=== PATIENT | female | born 1955 | race Caucasian/White ===

== ENCOUNTER 2023-12-08 16:10 | Inpatient (IN) | payer MEDICARE, OTHER, SELFPAY ==
[2023-12-08] VITALS (12 sets, daily range): BP systolic 96–143; BP diastolic 44–72; BMI 41.0
[2023-12-08 11:50] LABS: % Basophils 0.6 % (0-2); % Eosinophils 0.2 % (0-6); % Immature Granulocytes 0.5 % (0-0.5); % Lymphocytes 15.1 % (20.5-51.1); % Monocytes 8.1 % (1.7-9.3); % Neutrophils 75.5 % (42.2-75.2); Absolute Basophils 0.1 10^3/uL (0-0.2); Absolute Immature Granulocytes 0.1 10^3/uL (0-0.05); Absolute Lymphocytes 1.7 10^3/uL (1.2-3.4); Absolute Monocytes 0.9 10^3/uL (0.1-0.6); Absolute Neutrophils 8.3 10^3/uL (1.4-6.5); Hematocrit 37.4 % (37.0-47.0); Hemoglobin 13.8 g/dL (12.0-16.0); Mean Corp Hgb Conc. 36.9 g/dL (33.0-37.0); Mean Corpuscular Hgb 30.9 pg (27.0-31.0); Mean Corpuscular Volume 83.7 fL (81.0-99.0); Mean Platelet Volume 9.5 fL (7.4-10.4); Nucleated Red Blood Cells % 0 %; Platelet Count 250 10^3/uL (130-400); Red Blood Cell Count 4.47 10^6/uL (4.20-5.40); Red Cell Dist. Width 13.9 % (11.5-14.5)
[2023-12-08 12:09] LABS: Troponin I < 0.012 ng/ml
[2023-12-08] MEDS: NITROSTAT (SUBLINGUAL) 0.400000000000000022 MG SL (12:22)
[2023-12-08 12:39] LABS: NT-proBNP 292 pg/ml
[2023-12-08 12:41] LABS: ALT (SGPT) 23 U/L (0-35); AST (SGOT) 21 U/L (14-36); Albumin 3.9 g/dl (3.5-5.0); Alkaline Phosphatase 119 U/L (38-126); Blood Urea Nitrogen 30 mg/dl (7-17); Calcium 10.1 mg/dl (8.4-10.2); Carbon Dioxide 34 mmol/L (22-30); Chloride 89 mmol/L (98-107); Glucose 115 mg/dl (70-99); Potassium 2.6 mmol/L (3.5-5.1); Sodium 130 mmol/L (135-145); Total Bilirubin 0.8 mg/dl (0.2-1.3); Total Protein 6.1 g/dl (6.3-8.2)
--- NOTE | 2023-12-08 12:48 | ED.GENMED ---
History of Present Illness
General
Chief Complaint: Breathing Problem
Source: patient
Exam Limitations: none and other
Time Seen by Provider: 12/08/23 12:03
Travel History
Have you had any contact with someone who has COVID-19?: No
Do you have any symptoms of coronavirus? Fever > 100 degrees, chills, cough, shortness of breath, sore throat, loss of taste or smell, muscle aches, or headache?: No
History of Present Illness
History of Present Illness:
Patient with history of chronic dizziness on meclizine, hypertension, PE on Eliquis, and recently diagnosed congestive heart failure on Lasix, presents to ED secondary to sudden onset of chest pain while driving to [place] this morning. Chest pain
described as pressure, nonradiating, associated with shortness of breath and dizziness. Denies nausea or vomiting. Denies diaphoresis. Denies back pain. Denies leg pain. Patient states that when she woke up this morning, she was 'not feeling
great', with ongoing abdominal distention. As a result of ongoing swelling, patient has not had full meal since yesterday afternoon. Of note, patient was admitted to hospital in October and treated for 'fluid overload', and has been taking Lasix
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 In addition, patient was readmitted to the hospital last month secondary to RSV infection. Denies previous history of chest pain. Denies family history of heart disease.
Past History
Past History
ED Past Medical History: GERD, HTN, Hypercholesterolemia and Other (Chronic back pain, headaches, chronic renal insufficiency, Romano's esophagus, Poppy's thyroiditis)
ED Past Surgical History: Orthopedic and Tonsilectomy
Social History
Tobacco: Non-smoker
Alcohol: None
Drug: None
Living: with family
Employment: Retired
Family History
Family History: Other (Noncontributory)
Review of Systems
Review of Systems
Allergies reviewed?: Yes
All Other Systems: ROS reviewed and negative except as documented in HPI and ROS
Constitutional: Reports no symptoms
EENT: Reports no symptoms
Respiratory: Reports trouble breathing
Cardiac: Reports chest pain
ABD/GI: Reports no symptoms
: Reports no symptoms
Musculoskeletal: Reports no symptoms
Skin: Reports no symptoms
Neurological: Reports dizzy
Phy Exam
Physical Exam
Physical Exam:
Physical Exam
General: mild distress, not acutely ill. afebrile. obese
Head: nc/at. eomi
Neck: supple. normal range of motion.
Heart: s1/s2 regular rate and rhythm, no murmur. equal radial pulses.
Lungs: no acute respiratory distress. diminished breath sounds bilaterally
Abdomen: normal bowel sounds. not tender.
Neuro: alert and oriented. no focal neurological deficits
Skin: no rash
Psychiatric: well kept. interactive and cooperative
Extremities: LE b/l edema, nonpitting. no calf tenderness
Scores
Heart Failure Risk
Heart Failure Risk Score: Yes
History of Stroke or TIA: No
History of intubation for respiratory distress: No
Heart rate on ED arrival >/= 110: No
SaO2 <90% on arrival on room air: No
HR >/=110 during 3min walk test (or too ill to perform test): No
ECG has acute ischemic changes: No
Urea >/=12mmol/L (BUN 33.6mg/dL): Yes
Serum CO2>/=35mmol/L: No
Troponin I or T elevated to FL Level (0.4mg/dL): No
NT-proBNP >/=5,000ng/L (5,000pg/ml): No
HF Risk Score: 1
Admission Status: MEDIUM RISK 5.1% Consider observation or discharge to home with homecare & f/u visit to PCP/Hedge Fund Principal, or SNF for treatment
Heart Score for Chest Pain Patients
STEMI patient?: No
History: Slightly or Non-Suspicious
ECG: Normal
Age: >/= 65 years
Risk Factors: 1 or 2 Risk Factors
Troponin: </= Normal Limit
Heart Score for Chest Pain Patients: 3
Heart Score Risk: 2.5% MACE over next 6 weeks
Course
Orders/Labs/Results
Orders:
Orders
12/08/23 11:26
Electrocardiogram (*1) Urgent
Reason for Study: Vertigo / Dizzy
EKG- Treatment ONCE
12/08/23 11:39
Complete Blood Count/With Diff Urgent
NT-proBNP Urgent
Comment: ADD ON
Troponin I Urgent
12/08/23 11:56
Add On- LAB Urgent
Tests Added?: BNP
12/08/23 12:05
Comprehensive Metabolic Panel Urgent
Magnesium Urgent
Comment: ADD-ON
12/08/23 12:16
Nitroglycerin Sublingual [Nitrostat (Sublingual)] 0.4 mg SL NOW STA
12/08/23 12:17
CR Chest Portable - 1 View Urgent
Comment:
Reason For Exam: cp/sob
Reason Study Needs to be Portable: Patient Unstable
12/08/23 12:28
Electrocardiogram (*1) Urgent
Reason for Study: Chest Pain
EKG- Treatment ONCE
12/08/23 12:48
Acetaminophen [Tylenol] 650 mg PO NOW STA
Meclizine [Antivert] 25 mg PO NOW STA
Potassium Chloride [KCl] 40 meq PO NOW STA
12/08/23 13:37
Potassium Chloride [KCl] 40 meq 0.9% Sodium Chloride 250 ml [Nss] 250 ml IV NOW
12/08/23 Dinner
Cholesterol Lowering
At Your Request: Full Participation
Fluid Restriction: 1500 mL/day (50 oz)
12/08/23 15:17
Add On- LAB Urgent
Tests Added?: Mg level
12/08/23 15:29
CARDIOLOGY CONSULT Routine
Consulting Provider: Serge Shields
Was physician already notified: Yes
Reason for consult: chest pain
12/08/23 15:55
Admit/Transfer Patient As Directed
Co-Sign Provider:
Level of Care: Inpatient admission
Assign to:: Telemetry
Physician / Group: belen crawford
Diagnosis: Chest pain, severe hypokalemia
Reason for Telemetry: Medication for Arrhythmia
Date to Stop Telemetry: 12/10/23
Time to Stop Telemetry: 11:00
Reason for Hospitalization: Chest pain, severe hypokalemia
Expected length of stay greater than two midnights?: Yes
ELOS- Estimated Length of Stay in days: 2
I certify the patient meets the requirements for IP care: Yes
12/08/23 15:59
Code Status As Directed
Resuscitation Status: Full Code
12/08/23 18:35
Acetaminophen [Tylenol] 1,000 mg PO Q6HPRN PRN
Albuterol [ProAIR HFA INHALER] 2 puff INH R Q4 PRN
Lorazepam [Ativan] 1 mg PO Q8HPRN PRN
Meclizine [Antivert] 25 mg PO Q8HPRN PRN
Nitroglycerin Sublingual [Nitrostat (Sublingual)] 0.4 mg SL [id number] PRN
Promethazine [Phenergan] 25 mg PO Q6HPRN PRN
12/08/23 18:35
Urinalysis Reflex To Culture Routine
Date Specimen was Collected: 12/09/23
Time Specimen was Collected: 05:34
Activity As Directed
Activity Level: Ambulate
INT (Intravenous Needle Therapy) As Directed
Comment: maintain peripheral IV access
Intake/ Output As Directed
Frequency: Per unit guidelines
Records Request [Obtain Records] As Directed
Dates of Information to be Released: 04/09/23-present
Type of Information Requested: Entire Record
Vital Signs As Directed
Frequency: q4h
Weight As Directed
Frequency: Daily
Pt Eval And Treat Routine
Activity Level: Ambulate
12/08/23 19:00
Benzonatate [Tessalon Perles] 200 mg PO Q8HPRN PRN
12/08/23 19:05
Glycohemoglobin (HgbA1c) Routine
Troponin I Q3H
Comment: at admit & Q3H for 3 total including ED draws, obtain ECG with each level
12/08/23 20:00
Apixaban [Eliquis] 5 mg PO BID
Budesonide/Formoterol 160/4.5 [Symbicort 160/4.5 Mcg Inhaler] 2 puff INH R BID
12/08/23 20:01
Butalb/Acetaminophen/Caffeine [Fioricet] 1 tab PO Q8H PRN
12/08/23 20:30
Pantoprazole [Protonix] 40 mg PO BID
12/08/23 22:00
Atorvastatin [Lipitor] 20 mg PO HS
12/08/23 23:01
Basic Metabolic Panel Routine
Troponin I Q3H
Comment: at admit & Q3H for 3 total including ED draws, obtain ECG with each level
12/09/23 05:49
Basic Metabolic Panel IN AM
Complete Blood Count/No Diff IN AM
Magnesium IN AM
12/09/23 06:35
Electrocardiogram (*1) Q6H
Reason for Study: Chest Pain
Comment: at admission and Q3H for total of 3, to be done with each troponin
12/09/23 07:00
Levothyroxine [Synthroid] 137 mcg PO DAILY@0700
12/09/23 08:00
Cholecalciferol (Vitamin D3) [VITAMIN D3 (cholecalciferol)] 50 mcg PO DAILY
12/10/23 11:00
DC Protocol for Telemetry ONCE
Abnormal Lab Results
12/08/23 12/08/23
11:39 12:05
WBC 11.0 H 10^3/uL
(4.8-10.8)
Abs Immat Gran (auto) 0.1 H 10^3/uL
(0-0.05)
Absolute Neuts (auto) 8.3 H 10^3/uL
(1.4-6.5)
Absolute Monos (auto) 0.9 H 10^3/uL
(0.1-0.6)
Neutrophils % 75.5 H %
(42.2-75.2)
Lymphocytes % 15.1 L %
(20.5-51.1)
Sodium 130 L mmol/L
(135-145)
Potassium 2.6 L* mmol/L
(3.5-5.1)
Chloride 89 L mmol/L
(98-107)
Carbon Dioxide 34 H mmol/L
(22-30)
BUN 30 H mg/dl
(7-17)
Creatinine 1.2 H mg/dL
(0.6-1.0)
Glucose 115 H mg/dl
(70-99)
Total Protein 6.1 L g/dl
(6.3-8.2)
12/08/23 11:39
12/08/23 15:27
Vital Signs
Initial and Last Documented VS:
Initial Vital Signs
Resp Pulse Ox
12 97
12/08/23 11:27 12/08/23 11:27
Last Documented Vital Signs
Temp Pulse Resp BP Pulse Ox
97.9 F 94 18 116/64 96
12/09/23 11:16 12/09/23 11:16 12/09/23 11:16 12/09/23 11:16 12/09/23 11:16
MDM/Problems Addressed
MDM/Problems Addressed:
Abnormal EKG reviewed and discussed with Dr. Shields, cardiology, who feels that EKG is not significantly different from previous EKG. Initial troponin negative. However, patient with ongoing chest pain as well as dizziness, despite treatment. In
addition electrolyte abnormalities noted, which will need to be repleted. As such, patient will be admitted for further evaluation and treatment.
*EKG
Interpreted by ED Provider?: Yes
EKG Intrepretation Date: 12/08/23
Heart Rate: 94
Rate: normal
Rhythm: sinus
[place]: normal axis
Ischemia: non-specific ST changes
*Critical Care Note
Total Time (30-74mins, 75-104mins- exclusive of procedures): Not Applicable
ED Attending Note
-
Portions of this chart may have been created with voice recognition software.� Occasional wrong word or��sound alike� substitutions may have occurred due to the inherent limitations of voice recognition software.
Discharge Plan
Departure
Patient Disposition: Admit
Date of Disposition: 12/08/23
Time of Disposition: 14:14
Admit to: Telemetry
Presentation/result/management discussed w/ accepting MD/DO: Hospitalist
Condition: Fair
Discharge Problem:
Chest pain, Abnormal EKG, Hyponatremia, Hypokalemia
Interventions
Interventions:
*Risk Screen - Suicide Last Done: 12/08/23 11:55
*General Assessment Last Done: 12/08/23 11:31
*Neglect/Abuse Screening Last Done: 12/08/23 11:34
*ED COVID-19 Vaccine History Last Done: 12/08/23 11:29
*Nursing Disposition Last Done: 12/08/23 18:36
ED- Cardiac Assessment Last Done: 12/08/23 11:32
ED- Pulmonary Assessment Last Done: 12/08/23 11:33
Discharge Date and Time
Discharge Date/Time: 12/08/23 18:38
[2023-12-08] MEDS: TYLENOL 650 MG PO (13:00)
[2023-12-08] MEDS: ANTIVERT 25 MG PO (13:02)
[2023-12-08] MEDS: KCL 40 MEQ PO ×2 (13:02→20:55)
[2023-12-08] MEDS: KCL 270 MEQ IV (13:57)
--- NOTE | 2023-12-08 15:19 | HPS.HSE ---
Addendum entered and electronically signed by Gianluca Gibbs MD 12/08/23 16:14:
Patient also has common variable immunodeficiency (CVID)
-Follows with Genevieve Hewitt at [facility]
-Used to get IVIG for this, is being switched to Hizentra
-Will continue Bactrim for prophylaxis
Addendum entered and electronically signed by Gianluca Gibbs MD 12/08/23 16:03:
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
Avoid Zofran and other QT prolonging agents, monitor QTc on following EKGs.
Original Note:
Family Physician
-
Family Physician: Annie Finley
Chief Complaint
-
Chest pain
History of Present Illness
68-year-old female with a past medical history of morbid obesity, recently diagnosed CHF, pulmonary embolism on Eliquis, chronic dizziness on meclizine, hypertension, and anxiety presents with substernal chest pain that began when she was driving
today. Patient reports that she feels pressure and tightness at her substernal area, nonradiating, associated with mild shortness of breath and dizziness. Now the pain has traveled to her upper abdomen. Her potassium was low, she states she was
started on diuretics but not taking any potassium supplements. She had 1 episode of nausea and vomiting when taking potassium pills in the ER. No diarrhea. No dysuria, no black or bloody stools.
Medical History
Past Medical History
Past Medical History: Reports Other
Additional Past Medical History:
CHF, PE on eliquis, GERD, HTN, Hypercholesterolemia, Chronic back pain, Headaches, Chronic renal insufficiency, Romano's esophagus, Poppy's thyroiditis
Past Surgical History: Reports Orthopedic and Tonsilectomy
Social History
Tobacco: Non-smoker
Alcohol: None
Drug: None
Living: With Family
Employment: Retired
Family History
Family History: Not pertinent
Allergies / Home Medications
Allergies reflects when Allergies were last updated in [facility].
Home Medications with original date entered in [facility]
Allergy/Medication List:
Allergies
Allergy/AdvReac Type Severity Reaction Status Date / Time
amoxicillin Allergy Unknown Verified 12/08/23 11:41
cefaclor [From Ceclor] Allergy Hives Verified 12/08/23 11:41
cephalexin Allergy Unknown Verified 12/08/23 11:41
Cephalosporins Allergy Unknown Verified 12/08/23 11:41
iodine Allergy Unknown Verified 12/08/23 11:41
meperidine Allergy Unknown Verified 12/08/23 11:41
Penicillins Allergy Unknown Verified 12/08/23 11:41
IV dye Allergy Unknown Uncoded 12/08/23 11:41
Home Medications Table - record
Medication Instructions Recorded Confirmed
bvjscjieig-mouodqjptgqhi-ajoxrpyy 1 ea PO Q8H PRN headache 12/11/20 12/08/23
50 mg-325 mg-40 mg capsule
levothyroxine 137 mcg capsule 137 mcg PO DAILY 12/11/20 12/08/23
meclizine 25 mg tablet 25 mg PO Q8H PRN dizziness 12/11/20 12/08/23
rabeprazole 20 mg tablet,delayed 20 mg PO BID 12/11/20 12/08/23
release (AcipHex)
acetaminophen 500 mg tablet 1,000 mg PO Q6H PRN mild pain/fever 12/08/23 12/08/23
albuterol sulfate 90 mcg/actuation 2 puff inhalation R Q4 PRN 12/08/23 12/08/23
aerosol inhaler sob/wheezing
apixaban 5 mg tablet (Eliquis) 5 mg PO BID 12/08/23 12/08/23
benzonatate 200 mg capsule 200 mg PO Q8H PRN cough 12/08/23 12/08/23
cholecalciferol (vitamin D3) 50 50 mcg PO DAILY 12/08/23 12/08/23
mcg (2,000 unit) tablet (Vitamin
D3)
fluticasone furoate 200 1 inh inhalation R DAILY 12/08/23 12/08/23
mcg-vilanterol 25 mcg/dose
inhalation powder (Breo Ellipta)
furosemide 40 mg tablet 40 mg PO BID 12/08/23 12/08/23
furosemide 40 mg tablet 40 mg PO DAILY PRN fluid 12/08/23 12/08/23
lorazepam 1 mg tablet 1 mg PO Q8H PRN anxiety 12/08/23 12/08/23
losartan 50 mg tablet 50 mg PO DAILY 12/08/23 12/08/23
metolazone 2.5 mg tablet 2.5 mg PO .3X WEEKLY 12/08/23 12/08/23
ondansetron HCl 8 mg tablet 8 mg PO Q8H PRN nausea/vomiting 12/08/23 12/08/23
pitavastatin calcium 4 mg tablet 4 mg PO HS 12/08/23 12/08/23
sulfamethoxazole 800 1 tab PO BID 12/08/23 12/08/23
mg-trimethoprim 160 mg tablet
Review of Systems
-
A 12 point ROS was completed and negative except as noted: Yes
Physical Exam
Vital Signs
Vital Signs
Temp Pulse Resp BP Pulse Ox
98.1 F 95 15 100/72 95
12/08/23 11:34 12/08/23 14:02 12/08/23 14:02 12/08/23 13:40 12/08/23 14:02
Physical Exam
General: No Apparent Distress and Morbidly Obese
HEENT: NormoCephalic, Anicteric, Moist mucous membranes and Atraumatic
Respiratory: Decreased Breath Sounds
Cardiac: S1/S2 and Regular Rhythm
GI: Soft and Tender (Tender at the upper quadrants)
Musculoskeletal: No Clubbing, No Cyanosis, Edema, Left Lower Extremity and Edema, Right Lower Extremity
Skin: Warm and Dry
Neuro: Awake, Alert and Oriented
Psych: Calm
Laboratory Results
-
12/08/23 11:39
12/08/23 12:05
Laboratory Results
Total Bilirubin 0.8 mg/dl (0.2-1.3) 12/08/23 12:05
AST 21 U/L (14-36) 12/08/23 12:05
ALT 23 U/L (0-35) 12/08/23 12:05
Alkaline Phosphatase 119 U/L (38-126) 12/08/23 12:05
Troponin I < 0.012 ng/ml 12/08/23 11:39
Impression/Plan
-
HPI: 68-year-old female with a past medical history of morbid obesity, recently diagnosed CHF, pulmonary embolism on Eliquis, chronic dizziness on meclizine, hypertension, and anxiety presents with substernal chest pain that began when she was
driving today. Patient reports that she feels pressure and tightness at her substernal area, nonradiating, associated with mild shortness of breath and dizziness. Now the pain has traveled to her upper abdomen. Her potassium was low, she states
she was started on diuretics but not taking any potassium supplements. She had 1 episode of nausea and vomiting when taking potassium pills in the ER. No diarrhea. No dysuria, no black or bloody stools.
#Substernal chest pain
#Abnormal EKG
Consult cardiology, trend troponins, trend EKG
#Severe hypokalemia
Replete by IV and p.o., check Mg
#History of congestive heart failure - unknown type
On metolazone 2.5 mg 3 times a week as well as Lasix 40 mg twice a day
Hold diuretics until potassium is adequately repleted
Obtain records from [place]
#Hyponatremia
Suspect secondary to CHF
Fluid restrict, trend Na
#Benign essential hypertension
Blood pressure soft at 100/72, hold losartan
#Leukocytosis
No fever, chest x-ray negative
Check urine analysis
Monitor off antibiotics
#Chronic dizziness
Continue meclizine as needed
#Anxiety
Continue home Ativan as needed
#Hypothyroidism
Continue levothyroxine
#Morbid obesity secondary to excess calories
Affects all aspects of care
#Recent hospitalization for fluid overload at [place]
#Recent hospitalization for RSV at [place]
Request records
DVT prophylaxis�Eliquis
Full code
Total time spent to see the patient on the floor, examine the patient, review data and lab results, discuss treatment plan with patient, nursing staff around 75 minutes.
[2023-12-08 15:53] LABS: Magnesium 2.3 mg/dl (1.6-2.3)
--- NOTE | 2023-12-08 16:34 | CON.CAR ---
Consultation
Consultation Request
Date/Time Consultation Requested: December 08, 2023
Date/Time Consultation Performed: December 08, 2023
Requesting Provider: Hospitalist
Performing Provider: Cornelius
Reason for Consultation: Hypokalemia
Medical History
-
Chief Complaint: Hypokalemia
History of Present Illness:
68-year-old female with a past medical history of morbid obesity, recently diagnosed presumed diastolic CHF, prior DVT and pulmonary embolism on Eliquis, chronic dizziness on meclizine, hypertension, and anxiety presents with substernal chest pain
that began when she was driving today.� Patient reports that she feels pressure and tightness at her substernal area, nonradiating, associated with mild shortness of breath and dizziness.� Now the pain has traveled to her upper abdomen.� The pain
started around 9 AM. Her initial presenting troponin is negative. EKG from 2020 and 2 here from [address]-T changes. Importantly, her potassium was low, she states she was started on diuretics but not taking
any potassium supplements.� She had 1 episode of nausea and vomiting when taking potassium pills in the ER.� No diarrhea.� No dysuria, no black or bloody stools. She is followed at [facility] and Dr. Isaac Rosario sent her to our emergency
department. She has abdominal fullness and extremity edema after salty meals and she describes that fullness to me now.
Past Medical History
Past Medical History: CHF and HTN
Past Surgical History: None
Social History
Tobacco: Non-Smoker
Alcohol: None
Drug: None
Personal: Other
Living: Other
Employment: Employed
Family History
Family History: Reviewed & Not Pertinent
Allergies / Home Medications
Allergy/AdvReac Type Severity Reaction Status Date / Time
amoxicillin Allergy Unknown Verified 12/08/23 11:41
cefaclor [From Ceclor] Allergy Hives Verified 12/08/23 11:41
cephalexin Allergy Unknown Verified 12/08/23 11:41
Cephalosporins Allergy Unknown Verified 12/08/23 11:41
iodine Allergy Unknown Verified 12/08/23 11:41
meperidine Allergy Unknown Verified 12/08/23 11:41
Penicillins Allergy Unknown Verified 12/08/23 11:41
IV dye Allergy Unknown Uncoded 12/08/23 11:41
Medication Instructions Recorded Confirmed Type
lhlulouidq-bgnlhkjcvvzln-mnvzlgim 1 ea PO Q8H PRN headache 12/11/20 12/08/23 History
50 mg-325 mg-40 mg capsule
levothyroxine 137 mcg capsule 137 mcg PO DAILY 12/11/20 12/08/23 History
meclizine 25 mg tablet 25 mg PO Q8H PRN dizziness 12/11/20 12/08/23 History
rabeprazole 20 mg tablet,delayed 20 mg PO BID 12/11/20 12/08/23 History
release (AcipHex)
acetaminophen 500 mg tablet 1,000 mg PO Q6H PRN mild pain/fever 12/08/23 12/08/23 History
albuterol sulfate 90 mcg/actuation 2 puff inhalation R Q4 PRN 12/08/23 12/08/23 History
aerosol inhaler sob/wheezing
apixaban 5 mg tablet (Eliquis) 5 mg PO BID 12/08/23 12/08/23 History
benzonatate 200 mg capsule 200 mg PO Q8H PRN cough 12/08/23 12/08/23 History
cholecalciferol (vitamin D3) 50 50 mcg PO DAILY 12/08/23 12/08/23 History
mcg (2,000 unit) tablet (Vitamin
D3)
fluticasone furoate 200 1 inh inhalation R DAILY 12/08/23 12/08/23 History
mcg-vilanterol 25 mcg/dose
inhalation powder (Breo Ellipta)
furosemide 40 mg tablet 40 mg PO BID 12/08/23 12/08/23 History
furosemide 40 mg tablet 40 mg PO DAILY PRN fluid 12/08/23 12/08/23 History
lorazepam 1 mg tablet 1 mg PO Q8H PRN anxiety 12/08/23 12/08/23 History
losartan 50 mg tablet 50 mg PO DAILY 12/08/23 12/08/23 History
metolazone 2.5 mg tablet 2.5 mg PO .3X WEEKLY 12/08/23 12/08/23 History
ondansetron HCl 8 mg tablet 8 mg PO Q8H PRN nausea/vomiting 12/08/23 12/08/23 History
pitavastatin calcium 4 mg tablet 4 mg PO HS 12/08/23 12/08/23 History
sulfamethoxazole 800 1 tab PO BID 12/08/23 12/08/23 History
mg-trimethoprim 160 mg tablet
Review of Systems
-
All other systems: Negative unless noted
Constitutional: Fatigue
Respiratory: Trouble Breathing
Cardiac: Chest Pain
Musculoskeletal: No Symptoms
Skin: No Symptoms
Physical Exam
Vital Signs
Temp Pulse Resp BP Pulse Ox
98.1 F 92 11 100/72 91
12/08/23 11:34 12/08/23 16:15 12/08/23 16:15 12/08/23 13:40 12/08/23 16:15
Lab Results
12/08/23 11:39
12/08/23 15:27
Troponin I < 0.012 ng/ml 12/08/23 11:39
Hfc-K-Qhbhjlimxlj Pept 292 pg/ml 12/08/23 11:39
Physical Exam
General: Well Developed and Well Nourished
HEENT: Normocephalic and Anicteric
Respiratory: Clear
Cardiac: S1/S2 and Regular Rhythm
Breast: Deferred by me
GI: Soft, Non Tender and Distended
Rectal: Deferred by Provider
Genito-urinary: No Costovertebral Tender
Musculoskeletal: No Clubbing and No Cyanosis
Skin: Warm and Dry
Neuro: Awake, Alert and Oriented
Hematologic/Lymphatic: No Lymphadenopathy
Psych: Calm
Impression / Plan
-
Primary net web application developer: Dr. Tiffanie Melendez at [facility]
Impression:
Substernal chest pain
Abnormal EKG
Initial negative troponin after 5 hours of symptoms
Significant hypokalemia
History of congestive heart failure - unknown type
Outpatient diuresis with Lasix and metolazone without potassium repletion
Hyponatremia
Benign essential hypertension
Leukocytosis
Chronic dizziness
Anxiety
Hypothyroidism
Morbid obesity secondary to excess calories
Recent hospitalization for fluid overload at [place]
Recent hospitalization for RSV at [place] last week
Recommendation:
Her symptomatology and syndrome are most consistent with volume overload likely suspected diastolic heart failure and significant hypokalemia which could be the cause of her constitutional symptoms as well as nonspecific ST-T changes. Her ST
segments are scooped or terminal ascending and I am suspicious electrolyte abnormality as the cause of her ST-T changes. Nonetheless:
-Trend troponin
-It would be reasonable to perform echocardiogram
-Agree with potassium repletion prior to ongoing diuresis although she appears significantly volume overloaded and I suspect will need days of IV diuresis
-Old records would be important from [facility] as she was sent to the emergency department by one of their cardiologists
-Outpatient versus inpatient ischemia evaluation depending on troponin trend although I suspect this could be outpatient
-Contact [facility] office Saturday a.m. to obtain records and communicate plans for care
-Follow daily ECG, would continue telemetry given her electrolyte abnormalities and will follow closely with you
Data Reviewed
-
EKG: Tracing Personally Visualized and interpreted
Radiology: Image Personally Visualized and interpreted
Labs: Labs Reviewed by me
Old Records: Reviewed
--- NOTE | 2023-12-08 18:46 | PTCARENOTE ---
Pt arrived to floor from ED. KCL in NSS running at 40 in right arm. Tele applied
[2023-12-08 19:55] LABS: Troponin I < 0.012 ng/ml
[2023-12-08] MEDS: SYMBICORT 160/4.5 MCG INHALER 2 PUFF INH (20:16)
[2023-12-08] MEDS: PROTONIX 40 MG PO (20:55)
[2023-12-08] MEDS: LIPITOR 20 MG PO (20:55)
[2023-12-08] MEDS: ELIQUIS 5 MG PO (20:55)
[2023-12-08 23:27] LABS: Blood Urea Nitrogen 31 mg/dl (7-17); Calcium 9.3 mg/dl (8.4-10.2); Carbon Dioxide 32 mmol/L (22-30); Chloride 98 mmol/L (98-107); Estimated Creatinine Clearance 39 ml/min; Glucose 117 mg/dl (70-99); Potassium 4.2 mmol/L (3.5-5.1); Sodium 130 mmol/L (135-145); eGFR 40.47
[2023-12-08 23:31] LABS: Troponin I < 0.012 ng/ml
[2023-12-09] MEDS: FIORICET 1 TAB PO (02:28)
[2023-12-09] MEDS: KCL 40 MEQ PO (02:28)
[2023-12-09 03:32] VITALS: BP 116/61
[2023-12-09 05:51] VITALS: BMI 51.2
[2023-12-09] MEDS: SYNTHROID 137 MCG PO (06:06)
[2023-12-09 06:34] LABS: Hematocrit 40.5 % (37.0-47.0); Hemoglobin 13.6 g/dL (12.0-16.0); Mean Corp Hgb Conc. 33.6 g/dL (33.0-37.0); Mean Corpuscular Hgb 30.6 pg (27.0-31.0); Mean Platelet Volume 9.9 fL (7.4-10.4); Platelet Count 251 10^3/uL (130-400); Red Blood Cell Count 4.45 10^6/uL (4.20-5.40); Red Cell Dist. Width 14.6 % (11.5-14.5); White Blood Cell Count 7.9 10^3/uL (4.8-10.8)
[2023-12-09 07:03] LABS: Urine Albumin Trace (Neg - Trace); Urine Bilirubin 1+ (Negative); Urine Character Clear (Clear); Urine Color Yellow; Urine Glucose Negative (Negative); Urine Ketone Negative (Negative); Urine Leukocyte Negative (Negative); Urine Nitrite Negative (Negative); Urine Occult Blood Negative (Negative); Urine Urobilinogen Negative (Neg - 1+)
[2023-12-09 07:04] LABS: Blood Urea Nitrogen 31 mg/dl (7-17); Calcium 9.3 mg/dl (8.4-10.2); Carbon Dioxide 30 mmol/L (22-30); Chloride 100 mmol/L (98-107); Estimated Creatinine Clearance 56 ml/min; Glucose 106 mg/dl (70-99); Magnesium 2.7 mg/dl (1.6-2.3); Potassium 4.5 mmol/L (3.5-5.1); Sodium 130 mmol/L (135-145); eGFR 54.06
--- NOTE | 2023-12-09 07:20 | W.PN.HOSP.TC ---
Today's Communication/Plan
-
Resume furosemide today/defer further adjustments to cardiology
Add potassium supplement hopefully can tolerate
Hold metolazone for now
Await repeat 2D echocardiogram and compare results from [facility] to records requested
Liberalize fluid restriction as patient intolerant
Assessment / Plan
Assessment / Plan
68-year-old female with a past medical history of morbid obesity, recently diagnosed CHF, pulmonary embolism on Eliquis, chronic dizziness on meclizine, hypertension, and anxiety presents with substernal chest pain that began when she was driving
today.� Patient reports that she feels pressure and tightness at her substernal area, nonradiating, associated with mild shortness of breath and dizziness.� Now the pain has traveled to her upper abdomen.� Her potassium was low, she states she was
started on diuretics but not taking any potassium supplements.� She had 1 episode of nausea and vomiting when taking potassium pills in the ER.� No diarrhea.� No dysuria, no black or bloody stools.
#Substernal chest pain
#Abnormal EKG
Consult cardiology, trend troponins and follow-up in normal,
-EKG without acute injury or ischemia QTc initially prolonged now stable
#Severe hypokalemia/repleted
Replete by IV and p.o./magnesium 2.7
#History of congestive heart failure - unknown type
-proBNP of only 292
On metolazone 2.5 mg 3 times a week as well as Lasix 40 mg twice a day
Hold diuretics until potassium is adequately repleted/restart Lasix today hold off on metolazone for now
Obtain records from [place]
#Hyponatremia
Suspect secondary to CHF
Fluid restrict, trend Na
#Benign essential hypertension
Blood pressure soft at 100/72, hold losartan
#Leukocytosis
No fever, chest x-ray negative
Check urine analysis
Monitor off antibiotics
#Chronic dizziness
Continue meclizine as needed
#Anxiety
Continue home Ativan as needed
#Hypothyroidism
Continue levothyroxine
#Morbid obesity secondary to excess calories
Affects all aspects of care
#Recent hospitalization for fluid overload at [place]
#Recent hospitalization for RSV at [place]
Request records
DVT prophylaxis�Eliquis
Full code
Total time spent to see the patient on the floor, examine the patient, review data and lab results, discuss treatment plan with patient,� nursing staff� around 75 minutes.
Anticipated Discharge: 24 - 48 hours
Subjective/Interval History
-
Date of Service: December 09, 2023
'Feel that my belly is bloated' I have no more chest pain.' She is very thirsty and states that her urine turned orange.
Objective Data
-
Labs:
Laboratory Results
12/08/23 12/09/23
23:01 05:49
WBC 7.9
Hgb 13.6
Hct 40.5
Plt Count 251
Sodium 130 L 130 L
Potassium 4.2 D 4.5
Chloride 98 100
Carbon Dioxide 32 H 30
BUN 31 H 31 H
Creatinine 1.4 H 1.1 H
Glucose 117 H 106 H
Calcium 9.3 9.3
Vital Signs:
Vital Signs
Temp Pulse Resp BP Pulse Ox
98.1 F 82 18 116/61 98
12/09/23 03:32 12/09/23 03:32 12/09/23 03:32 12/09/23 03:32 12/09/23 03:32
I&O
12/08/23 12/09/23 12/10/23
06:59 06:59 06:59
Intake Total 720 / 720
Balance 720 / 720
Review of Systems
-
History Source: Patient
Constitutional: Reports Sleep Disturbance
EENT: Reports No Symptoms Reported
Cardiac: Reports No Symptoms
Abdomen/GI: Reports Bloated
Genitourinary: Reports No Symptoms
Allergy / Immunology: Reports No Symptoms
Physical Exam
-
General: Morbidly Obese
HEENT: Normocephalic
Respiratory: Clear to Auscultation
Cardiac: Regular Rhythm and S1/S2
GI: Soft and Nontender
Musculoskeletal: No Edema
Skin: IV Access / Catheter Site
Neuro: Awake and Alert
Psych: Anxious
Data Reviewed
-
Total Time Spent with Patient (in minutes): 45
Labs: Labs Reviewed by me (Creatinine down to 1.1/BUN unchanged sodium unchanged at 130 magnesium 2.7/proBNP of only 292)
[2023-12-09 07:25] VITALS: BP 133/54
[2023-12-09] MEDS: SYMBICORT 160/4.5 MCG INHALER 2 PUFF INH ×2 (07:48→19:54)
[2023-12-09 09:00] LABS: Glycohemoglobin (HgbA1c) 5.8 % (4.0-5.6)
[2023-12-09] MEDS: LASIX 40 MG PO (09:40)
[2023-12-09] MEDS: KCL ELIXIR 40 MEQ PO (09:41)
[2023-12-09] MEDS: VITAMIN D3 (cholecalciferol) 50 MCG PO (09:41)
[2023-12-09] MEDS: ELIQUIS 5 MG PO ×2 (09:41→21:21)
[2023-12-09] MEDS: PROTONIX 40 MG PO ×2 (09:42→21:21)
[2023-12-09] MEDS: PHENERGAN 25 MG PO ×2 (09:42→21:54)
[2023-12-09] MEDS: BACTRIM DS 800 MG/160 MG 1 TABLET PO ×2 (09:42→21:21)
[2023-12-09 11:16] VITALS: BP 116/64
[2023-12-09] MEDS: LASIX 40 MG IV ×2 (12:37→17:48)
--- NOTE | 2023-12-09 14:02 | W.PN.CARDCBS ---
Today's Communication / Plan
-
Give IV Lasix for acute diastolic CHF
Check echo
Obtain records from [facility]
Impression / Plan
-
Primary concrete mixing plant laborer: Dr. Tiffanie Melendez at [facility]
Impression:
Substernal chest pain/abnormal ECG/negative troponin
Acute diastolic CHF
Benign essential hypertension
Chronic dizziness
Anxiety
Hypothyroidism
Morbid obesity secondary to excess calories
Recent hospitalization for fluid overload at [place]
Recent hospitalization for RSV at [place] last week
Recommendation:
Chest pain has resolved and troponins were negative
ECG has improved as well and perhaps some of the EKG changes were due to hypokalemia
He feels he has volume overload and will start IV Lasix
Obtain records from [facility] cardiology regarding prior stress testing and echocardiograms
Progress Note - Lamp Developer
Subjective
Date of Service: December 09, 2023
No further chest pain. Patient feels distended. She feels she has too much fluid
Objective
Labs:
12/09/23 05:49
12/09/23 05:49
Labs
Hgb 13.6 g/dL (12.0-16.0) 12/09/23 05:49
Hct 40.5 % (37.0-47.0) 12/09/23 05:49
Plt Count 251 10^3/uL (130-400) 12/09/23 05:49
Sodium 130 mmol/L (135-145) L 12/09/23 05:49
Potassium 4.5 mmol/L (3.5-5.1) 12/09/23 05:49
BUN 31 mg/dl (7-17) H 12/09/23 05:49
Creatinine 1.1 mg/dL (0.6-1.0) H 12/09/23 05:49
Glucose 106 mg/dl (70-99) H 12/09/23 05:49
Troponins
12/08/23 12/08/23 12/08/23
11:39 19:05 23:01
Troponin I < 0.012 < 0.012 < 0.012
12/09/23
00:35
Troponin I Cancelled
Vital Signs and I&O:
Vital Signs
Temp Pulse Resp BP Pulse Ox
97.9 F 94 18 116/64 96
12/09/23 11:16 12/09/23 11:16 12/09/23 11:16 12/09/23 11:16 12/09/23 11:16
Vital Signs
Temp Pulse Resp BP Pulse Ox
97.9 F 94 18 116/64 96
12/09/23 11:16 12/09/23 11:16 12/09/23 11:16 12/09/23 11:16 12/09/23 11:16
Intake & Output
12/07/23 12/08/23 12/09/23 12/10/23
06:59 06:59 06:59 06:59
Intake Total 720 / 720
Balance 720 / 720
Physical Exam
Physical Exam
General: Well developed, well nourished in NAD.
Neck: Supple, no JVD, HJR, carotids +2 B/L, no bruits bilaterally.
Heart: Non displaced PMI, RRR, no murmurs, No S3, S4, no rubs.
Lungs: Scattered rhonchi.
Abdomen: Normal bowel sounds, soft, non-tender, non-distended.
Extremities: No clubbing, cyanosis or edema bilaterally.
Neuro: Grossly nonfocal, awake, alert and oriented x3.
--- NOTE | 2023-12-09 15:22 | CM ---
Addendum entered by Mica Tinajero RN 12/09/23 16:27:

Original Note:
Reviewed the chart notes and spoke with the patient at the bedside. The patient resides alone in a first floor condo with three steps to enter. The patient uses a cane with ambulation and has a grab bar in shower and right outside shower. The
patient is current with [facility]. The patient report no SNF in the past. The patient confirmed her pharmacy of choice is the [facility]. CM continues to be available to patient/family and is monitoring medical plan
for needs at discharge.
Plan: Discharge back to home with resumption of [facility].
[2023-12-09 15:23] VITALS: BP 97/71
[2023-12-09 19:15] VITALS: BP 146/74
[2023-12-09] MEDS: LIPITOR PO ×2 (21:22→22:36)
[2023-12-09 23:23] VITALS: BP 120/67
[2023-12-10 03:40] VITALS: BP 111/61
[2023-12-10] MEDS: SYNTHROID 137 MCG PO (05:25)
[2023-12-10 05:50] VITALS: BMI 50.8
[2023-12-10 06:22] LABS: Hematocrit 38.3 % (37.0-47.0); Hemoglobin 13.3 g/dL (12.0-16.0); Mean Corp Hgb Conc. 34.7 g/dL (33.0-37.0); Mean Corpuscular Hgb 31.1 pg (27.0-31.0); Mean Corpuscular Volume 89.5 fL (81.0-99.0); Mean Platelet Volume 9.9 fL (7.4-10.4); Platelet Count 242 10^3/uL (130-400); Red Blood Cell Count 4.28 10^6/uL (4.20-5.40); Red Cell Dist. Width 14.6 % (11.5-14.5); White Blood Cell Count 8.7 10^3/uL (4.8-10.8)
[2023-12-10 06:48] LABS: Blood Urea Nitrogen 35 mg/dl (7-17); Calcium 9.4 mg/dl (8.4-10.2); Carbon Dioxide 30 mmol/L (22-30); Chloride 95 mmol/L (98-107); Estimated Creatinine Clearance 51 ml/min; Glucose 106 mg/dl (70-99); Potassium 3.9 mmol/L (3.5-5.1); Sodium 134 mmol/L (135-145)
[2023-12-10 07:46] VITALS: BP 131/83
--- NOTE | 2023-12-10 07:46 | W.PN.HOSP.TC ---
Today's Communication/Plan
-
Continue IV diuresis and transition to oral furosemide and metolazone as per cardiology
Continue to monitor BMP and weight
2D echocardiogram still pending
We discussed various weight loss options/and her candidacy for GLP-1 given her prediabetic status on her A1c she may qualify however has history of IBS which could be problematic with side effects
Assessment / Plan
Assessment / Plan
68-year-old female with a past medical history of morbid obesity, recently diagnosed CHF, pulmonary embolism on Eliquis, chronic dizziness on meclizine, hypertension, and anxiety presents with substernal chest pain that began when she was driving
today.� Patient reports that she feels pressure and tightness at her substernal area, nonradiating, associated with mild shortness of breath and dizziness.� Now the pain has traveled to her upper abdomen.� Her potassium was low, she states she was
started on diuretics but not taking any potassium supplements.� She had 1 episode of nausea and vomiting when taking potassium pills in the ER.� No diarrhea.� No dysuria, no black or bloody stools.
I have reviewed medical records from [facility]/reviewed results of 2D echocardiogram
#Substernal chest pain
#Abnormal EKG
Consult cardiology, trend troponins and follow-up in normal,
-EKG without acute injury or ischemia QTc initially prolonged now stable
#Severe hypokalemia/repleted
Replete by IV and p.o./magnesium 2.7
#History of congestive heart failure - unknown type
-proBNP of only 292
On metolazone 2.5 mg 3 times a week as well as Lasix 40 mg twice a day
Hold diuretics until potassium is adequately repleted/Restarted on IV Lasix 40 mg twice daily
records from [place] reviewed/
-2D echocardiogram with a 60% EF and grade 1 diastolic dysfunction/repeat echo performed here pending
-Still unclear what her dry weight is presently 118 kg
#Hyponatremia
Suspect secondary to CHF/now improved to 134
Fluid restrict she could not tolerate, trend Na
#Benign essential hypertension
Blood pressure soft at 100/72, held losartan at admission will be restarted
#Leukocytosis
No fever, chest x-ray negative
Check urine analysis
Monitor off antibiotics
#Chronic dizziness
Continue meclizine as needed
#Anxiety
Continue home Ativan as needed
#Hypothyroidism
Continue levothyroxine
#Morbid obesity secondary to excess calories
Affects all aspects of care
#Recent hospitalization for fluid overload at [place]
#Recent hospitalization for RSV at [place]
Request records
DVT prophylaxis�Eliquis
Full code
Total time spent to see the patient on the floor, examine the patient, review data and lab results, discuss treatment plan with patient,� nursing staff� around 75 minutes.
Anticipated Discharge: 24 - 48 hours
Subjective/Interval History
-
Date of Service: December 10, 2023
Feels little better and states she has less distention her bili from yesterday/no significant shortness of breath
Objective Data
-
Labs:
Laboratory Results
12/10/23
04:56
WBC 8.7
Hgb 13.3
Hct 38.3
Plt Count 242
Sodium 134 L
Potassium 3.9
Chloride 95 L
Carbon Dioxide 30
BUN 35 H
Creatinine 1.2 H
Glucose 106 H
Calcium 9.4
Vital Signs:
Vital Signs
Temp Pulse Resp BP Pulse Ox
98.0 F 94 20 111/61 97
12/10/23 03:40 12/10/23 03:40 12/10/23 03:40 12/10/23 03:40 12/10/23 03:40
I&O
12/09/23 12/10/23 12/11/23
06:59 06:59 06:59
Intake Total 720 / 720 840 / 840
Balance 720 / 720 840 / 840
Review of Systems
-
History Source: Patient
Constitutional: Reports No Symptoms
EENT: Reports No Symptoms Reported
Respiratory: Reports No Symptoms
Physical Exam
-
General: Morbidly Obese
HEENT: Normocephalic
Respiratory: Clear to Auscultation
GI: Soft, Nontender and Nondistended
Neuro: Awake
Data Reviewed
-
Total Time Spent with Patient (in minutes): 45
Labs: Labs Reviewed by me (Sodium 134 creatinine 1.2 slight rise chloride 95,)
[2023-12-10] MEDS: SYMBICORT 160/4.5 MCG INHALER 2 PUFF INH (08:10)
[2023-12-10] MEDS: PROTONIX 40 MG PO (09:15)
[2023-12-10] MEDS: PHENERGAN 25 MG PO (09:15)
[2023-12-10] MEDS: LASIX 40 MG IV (09:16)
[2023-12-10] MEDS: BACTRIM DS 800 MG/160 MG 1 TABLET PO (09:16)
[2023-12-10] MEDS: VITAMIN D3 (cholecalciferol) 50 MCG PO (09:16)
[2023-12-10] MEDS: KCL ELIXIR PO (09:16)
[2023-12-10] MEDS: ELIQUIS 5 MG PO (09:16)
[2023-12-10 11:24] VITALS: BP 139/57
--- NOTE | 2023-12-10 12:34 | W.PN.CARDCBS ---
Today's Communication / Plan
-
Plan for transition to PO lasix
Would check outpatient BMP in 1-2 weeks
Stable for discharge, plan to follow up with her primary junior high school teacher at [facility]
Impression / Plan
-
Primary junior high school teacher: Dr. Tiffanie Melendez at [facility]
Impression:
Substernal chest pain/abnormal ECG/negative troponin
Acute on chronic HFpEF
Hypokalemia
Benign essential hypertension
Chronic dizziness
Anxiety
Hypothyroidism
Morbid obesity secondary to excess calories
Recent hospitalization for fluid overload at [place]
Recent hospitalization for RSV at [place] last week
Recommendation:
Chest pain has resolved and troponins were negative
ECG has improved - changes may be due to hypokalemia which has resp;jessika
TTE here unremarkable
Tells me her abdomen is less tense after treatment with IV lasix
Ok to transition to PO lasix
Discussed with patient that renal function and K should be repeated as an outpatient
CHF education provided including Na restriction and daily weights
Should follow up with her primary junior high school teacher at [facility]
Progress Note - Drafting Supervisor
Subjective
Date of Service: December 10, 2023
NAOE. Tells me her breathing is comfortable. No chest pain or pressure.
Objective
Labs:
12/10/23 04:56
12/10/23 04:56
Labs
Hgb 13.3 g/dL (12.0-16.0) 12/10/23 04:56
Hct 38.3 % (37.0-47.0) 12/10/23 04:56
Plt Count 242 10^3/uL (130-400) 12/10/23 04:56
Sodium 134 mmol/L (135-145) L 12/10/23 04:56
Potassium 3.9 mmol/L (3.5-5.1) 12/10/23 04:56
BUN 35 mg/dl (7-17) H 12/10/23 04:56
Creatinine 1.2 mg/dL (0.6-1.0) H 12/10/23 04:56
Glucose 106 mg/dl (70-99) H 12/10/23 04:56
Troponins
12/08/23 12/08/23 12/08/23
11:39 19:05 23:01
Troponin I < 0.012 < 0.012 < 0.012
12/09/23
00:35
Troponin I Cancelled
Vital Signs and I&O:
Vital Signs
Temp Pulse Resp BP Pulse Ox
97.8 F 92 20 139/57 94
12/10/23 11:24 12/10/23 11:24 12/10/23 11:24 12/10/23 11:24 12/10/23 11:24
Vital Signs
Temp Pulse Resp BP Pulse Ox
97.8 F 92 20 139/57 94
12/10/23 11:24 12/10/23 11:24 12/10/23 11:24 12/10/23 11:24 12/10/23 11:24
Intake & Output
12/08/23 12/09/23 12/10/23 12/11/23
06:59 06:59 06:59 06:59
Intake Total 720 / 720 840 / 840
Balance 720 / 720 840 / 840
Physical Exam
Physical Exam
Gen: NAD, AAOx3
HEENT: NC/AT, sclera anicteric
Neck: Difficult to assess JVP
CV: RRR, NL s1/s2, no M/R/G
Lungs: CTAB
Abd: S/ND
Ext: Non-pitting LE edema
Skin: Warm, dry
Neuro: Non-focal
--- NOTE | 2023-12-10 13:53 | W.DCSUMMARY ---
Discharge Summary
Discharge Data
Date of Admission: 12/08/23
Date of Discharge: 12/10/23
Total time spent discharging patient (in min): 38
-
Pending Results: No
Hospital Course
Patient is a 68-year-old female who had a primary cardiac care at [place] prior to presentation/presenting with a atypical presentation of substernal chest pain with a mildly abnormal ECG with nonspecific T wave abnormalities and but presented with
a negative troponin elevation but did present with evidence of acute on chronic preserved EF heart failure with fluid overload and also hypokalemia she is on fairly high dosages of furosemide and takes metolazone 3 times a week but does not take
potassium supplementation as she continues to maintain it upsets her stomach. We obtain records from [place] with comparison echo reviewed of note she had also just had a recent hospitalization at [facility] for an RSV infection. Following morning
after her admission the patient's chest pain was resolved and troponins remain negative ECG did note some QTc prolongation no doubt in relation to her presentation of hypokalemia which is also resolved with after repletion a transthoracic
echocardiogram was again unremarkable and compared to prior tracing at the [facility] with an EF of 65% and a grade 1 diastolic dysfunction only. Her major symptom concern would be her abdominal tightness and bloating which seem to improve with
course of IV furosemide which was transition to oral Lasix on the date of her discharge. Cardiology reiterated to her the need to have her kidney function continue to be followed and repeated potassium levels within the week as she is to return to
her prior dosing of diuretic management. CHF education was provided including sodium restriction and daily weights again instructed to her she was instructed to follow-up with her primary coil winder strap at [facility]. We also reviewed the need to
lose weight in the setting of her morbid obesity is contributing to a lot of her chronic issues including difficulty in ambulation activity and of note her glycohemoglobin at 5.8 was considered to be in the prediabetic range.
Discharge Plan
-
Patient Disposition: Home (Routine Discharge)
Discharge Diagnosis/Procedures: Acute diastolic heart failure
Acute hypokalemia now repleted
Diet: 2 Gram Sodium
Activity: As tolerated
Additional Activity: Please be aware that potassium supplements taken with your maintenance dose of Bactrim/levels have to be monitored closely and frequently
Driving Restrictions: As prior to admission
Others Tests: BMP in 1 week
Referrals:
Annie Finley MD [Family Provider] - in less than 1 week
Marco Antonio Bajwa PA [Non-Admitting Privileges] - 12/24/23 2:20 pm (You have cardiology follow up with Dr. Benito's Physician Lien Searcher on December 24 at 2:20 pm. If you are unable to make this please call [phone]. )
Prescriptions:
New
potassium chloride 20 mEq/15 mL Liquid
20 meq PO DAILY Qty: 30 0RF
Continued
[id number]-[id number]-edls 1 EACH capsule
1 ea PO Q8H PRN (Reason: headache)
Patient Comments:
12/08/2023: last filled 09/12/23, 90 tabs for 30 days from [facility]
rabeprazole [AcipHex] 20 MG tablet,delayed release (DR/EC)
20 mg PO BID
meclizine 25 MG tablet
25 mg PO Q8H PRN (Reason: dizziness)
levothyroxine 137 MCG capsule
137 mcg PO DAILY
losartan 50 mg tablet
50 mg PO DAILY
ondansetron HCl 8 mg tablet
8 mg PO Q8H PRN (Reason: nausea/vomiting)
lorazepam 1 mg tablet
1 mg PO Q8H PRN (Reason: anxiety)
Patient Comments:
12/08/2023: last filled 11/26/23, 90 tabs for 30 days from [facility]
albuterol sulfate 90 mcg/actuation HFA aerosol inhaler
2 puff INHALATION R Q4 PRN (Reason: sob/wheezing)
Eliquis 5 mg tablet
5 mg PO BID
fluticasone furoate-vilanterol [Breo Ellipta] 200-25 mcg/dose blister with device
1 inh INHALATION R DAILY
furosemide 40 mg tablet
40 mg PO BID
furosemide 40 mg Tablet
40 mg PO DAILY PRN (Reason: fluid)
Patient Comments:
12/08/2023: Pt was advised to take an extra dose to Furosemide yesterday.
metolazone 2.5 mg tablet
2.5 mg PO .3X WEEKLY
benzonatate 200 mg capsule
200 mg PO Q8H PRN (Reason: cough)
sulfamethoxazole-trimethoprim 800-160 mg tablet
1 tab PO BID
acetaminophen 500 mg Tablet
1,000 mg PO Q6H PRN (Reason: mild pain/fever)
cholecalciferol (vitamin D3) [Vitamin D3] 50 mcg (2,000 unit) Tablet
50 mcg PO DAILY
pitavastatin calcium 4 mg tablet
4 mg PO HS
Discharge Orders:
Discharge Patient (As Directed); Ordered 12/10/23
Ordered By: Stephan Green
--- NOTE | 2023-12-10 14:08 | CM ---
Reviewed the chart notes and spoke with the patient at the bedside. IMM signed and placed on the chart. The patient is being discharged to home with no additional needs being identified at this time. The patient's friend will provide
transportation home. CM continues to be available to patient/family and is monitoring medical plan for needs at discharge.
Plan: Discharge to home today with no needs.
[2023-12-10] MEDS: TUMS 1 TABLET PO (14:15)
--- NOTE | 2023-12-10 15:26 | PTCARENOTE ---
Patient was safely discharged via staff escort on a wheelchair. Discharge instructions printed, discussed with patient, questions answered appropriately and signed by patient. Patient reminded to follow up with referrals and blood work. Echo report
handed to patient as well (by JAVA SOFTWARE DEVELOPER?). All belongings sent with patient.
== END 2023-12-10 15:24 | disposition home or self-care (01) | DRG 291 ==
LOC: 2 NORTH 16:10
PROVIDERS: ADMITTING PHYSICIAN Family Medicine; ATTENDING PHYSICIAN Internal Medicine; CONSULT PHYSICIAN Internal Medicine Cardiovascular Disease; EMERGENCY PHYSICIAN Emergency Medicine; FAMILY PHYSICIAN Family Medicine
DX: I11.0 Hypertensive heart disease with heart failure (principal); I50.33 Acute on chronic diastolic (congestive) heart failure; Z68.43 Body mass index [BMI] 50.0-59.9, adult; E87.1 Hypo-osmolality and hyponatremia; E66.01 Morbid (severe) obesity due to excess calories; E87.6 Hypokalemia; F41.9 Anxiety disorder, unspecified; E03.9 Hypothyroidism, unspecified; Z86.711 Personal history of pulmonary embolism; Z86.718 Personal history of other venous thrombosis and embolism; Z79.01 Long term (current) use of anticoagulants
CPT/HCPCS: 71045; 80048; 80053; 81003; 83036; 83735; 83880; 84484; 85025; 85027; 87070; 93005; 93306; 94640; 96365; 96366; 97161; 99285

== ENCOUNTER 2025-03-01 16:48 | Emergency (ER) | payer MEDICARE, OTHER, SELFPAY ==
[2025-03-01 16:51] VITALS: BP 158/81
[2025-03-01 17:16] LABS: % Basophils 0.7 % (0-2); % Eosinophils 0.6 % (0-6); % Immature Granulocytes 0.2 % (0-0.5); % Lymphocytes 19.3 % (20.5-51.1); % Monocytes 6.5 % (1.7-9.3); % Neutrophils 72.7 % (42.2-75.2); Absolute Basophils 0.1 10^3/uL (0-0.2); Absolute Eosinophils 0.1 10^3/uL (0-0.7); Absolute Lymphocytes 1.6 10^3/uL (1.2-3.4); Absolute Monocytes 0.5 10^3/uL (0.1-0.6); Absolute Neutrophils 5.9 10^3/uL (1.4-6.5); Hematocrit 36.4 % (37.0-47.0); Hemoglobin 12.3 g/dL (12.0-16.0); Mean Corp Hgb Conc. 33.8 g/dL (33.0-37.0); Mean Corpuscular Hgb 29.8 pg (27.0-31.0); Mean Corpuscular Volume 88.1 fL (81.0-99.0); Mean Platelet Volume 9.7 fL (7.4-10.4); Nucleated Red Blood Cells % 0 %; Platelet Count 249 10^3/uL (130-400); Red Blood Cell Count 4.13 10^6/uL (4.20-5.40); Red Cell Dist. Width 13.1 % (11.5-14.5); White Blood Cell Count 8.1 10^3/uL (4.8-10.8)
[2025-03-01 17:28] LABS: ALT (SGPT) 16 U/L (0-35); AST (SGOT) 18 U/L (14-36); Albumin 3.7 g/dl (3.5-5.0); Alkaline Phosphatase 130 U/L (38-126); Blood Urea Nitrogen 27 mg/dl (7-17); Calcium 8.8 mg/dl (8.4-10.2); Carbon Dioxide 30 mmol/L (22-30); Chloride 98 mmol/L (98-107); Glucose 105 mg/dl (70-99); Potassium 4.1 mmol/L (3.5-5.1); Sodium 135 mmol/L (135-145); Total Bilirubin 0.5 mg/dl (0.2-1.3); Total Protein 6.1 g/dl (6.3-8.2); eGFR > 60.00
[2025-03-01 17:35] LABS: Troponin I < 0.012 ng/ml
[2025-03-01 17:53] LABS: NT-proBNP 182 pg/ml
--- NOTE | 2025-03-01 19:48 | ED.GENMED ---
History of Present Illness
General
Chief Complaint: Breathing Problem
Source: patient
Exam Limitations: none
Time Seen by Provider: 03/01/25 19:43
Nursing documentation reviewed up to this point in time: agreed with
History of Present Illness
History of Present Illness:
69-year-old female presents emergency department due to shortness of breath, tightness in her chest since last night 4 to 6 pound weight gain since last night. Has a history of CHF. States he feels somewhat better. She follows with a pullman clerk
at [place].
Past History
Past History
ED Past Medical History: GERD, HTN, Hypercholesterolemia and Other (Chronic back pain, headaches, chronic renal insufficiency, Romano's esophagus, Poppy's thyroiditis)
ED Past Surgical History: Orthopedic and Tonsilectomy
Social History
Tobacco: Non-smoker
Alcohol: None
Drug: None
Living: with family
Employment: Retired
Family History
Family History: Other (Noncontributory)
Review of Systems
Review of Systems
Allergies reviewed?: Yes
All Other Systems: Not applicable
Constitutional: Reports no symptoms
EENT: Reports no symptoms
Respiratory: Reports trouble breathing
Cardiac: Reports no symptoms
ABD/GI: Reports no symptoms
: Reports no symptoms
Musculoskeletal: Reports no symptoms
Skin: Reports no symptoms
Neurological: Reports no symptoms
Endocrine: Reports no symptoms
Hematologic/Lymphatic: Reports no symptoms
Psychiatric: Reports no symptoms
Phy Exam
Physical Exam
Physical Exam:
Physical Exam
General: no apparent distress, not acutely ill, Elevated BMI
Neck: supple. no meningeal signs. normal posterior pharynx
Heart: s1/s2 regular rate and rhythm, no murmur. equal radial
pulses.
HEENT: Pupils equal round reactive to light, EOMI
Lungs: no acute respiratory distress. clear bilaterally
Abdomen: normal bowel sounds. not tender. no CVAT
Neuro: alert and oriented. no focal neurological deficits cranial nerves II through XII intact
Skin: no rash
Psychiatric: well kept. interactive and cooperative
Extremities: no edema. no calf tenderness. negative homans. good distal pulses
Scores
Heart Failure Risk
Heart Failure Risk Score: Not Applicable
Course
Orders/Labs/Results
Orders:
Orders
03/01/25 16:53
Electrocardiogram (*1) Urgent
Reason for Study: Chest Pain
03/01/25 16:54
EKG- Treatment ONCE
03/01/25 17:05
Complete Blood Count/With Diff Urgent
Comprehensive Metabolic Panel Urgent
NT-proBNP Urgent
Troponin I Urgent
03/01/25 19:48
CR Chest - 2 Views Urgent
Comment:
Reason For Exam: short of breath
Abnormal Lab Results
03/01/25
17:05
RBC 4.13 L 10^6/uL
(4.20-5.40)
Hct 36.4 L %
(37.0-47.0)
Lymphocytes % 19.3 L %
(20.5-51.1)
BUN 27 H mg/dl
(7-17)
Glucose 105 H mg/dl
(70-99)
Alkaline Phosphatase 130 H U/L
(38-126)
Total Protein 6.1 L g/dl
(6.3-8.2)
03/01/25 17:05
03/01/25 17:05
Vital Signs
Initial and Last Documented VS:
Initial Vital Signs
Temp Pulse Resp BP Pulse Ox
98.3 F 96 18 158/81 99
03/01/25 16:51 03/01/25 16:51 03/01/25 16:51 03/01/25 16:51 03/01/25 16:51
Last Documented Vital Signs
Temp Pulse Resp BP Pulse Ox
98.3 F 71 18 149/63 99
03/01/25 16:51 03/01/25 20:05 03/01/25 16:51 03/01/25 20:05 03/01/25 20:05
MDM/Problems Addressed
Differential Diagnosis Includes:
Pneumonia, CHF
MDM/Problems Addressed:
69-year-old female with weight gain, mild shortness of breath. Lungs clear. Do not suspect CHF or PE. No signs of distress. Stable for discharge.
Chronic conditions affecting care: HTN and Cardiomyopathy
*Radiology
Radiology exam reviewed: preliminary read by ED provider (Chest x-ray no acute findings)
*Pulse Oximetry
Patient hypoxic: no
*EKG
Interpreted by ED Provider?: Yes
EKG Intrepretation Date: 03/01/25
EKG Intrepretation Time: 16:59
Interpretation: abnormal
Comparison EKG: no changes
Heart Rate: 93
Rate: normal
Rhythm: sinus
Independence: normal axis
Interval: normal interval
QRS Pattern: normal QRS
Ischemia: no ischemia
*Waiter/[employer] Interpretation
Rate: normal
Interpretation: normal
Heart Rate: 70
Rhythm: sinus
*Critical Care Note
Total Time (30-74mins, 75-104mins- exclusive of procedures): Not Applicable
Data Reviewed
Review of Other/Old Records Reveals: Labs (Prior creatinine 1.2 on 12/10/2023)
Source: records
Further Testing Considered But Not Given:
CT chest not indicated
Patient Management
Social determinants of health affecting care: Living situation and Strong social support
Escalation/DeEscalation of care consider admission/obs:
Admit not indicated
ED Attending Note
-
Portions of this chart may have been created with voice recognition software.� Occasional wrong word or��sound alike� substitutions may have occurred due to the inherent limitations of voice recognition software.
Discharge Plan
Departure
Patient Disposition: Home (Routine Discharge)
Date of Disposition: 03/01/25
Time of Disposition: 20:51
Patient with high blood pressure during this ER visit?: Yes
Condition: Good
Discharge Problem:
Shortness of breath
Instructions: Shortness of Breath (Dyspnea) (DC), BLOOD PRESSURE
Prescriptions:
No Action
equdeoibyn-[id number] 1 EACH capsule
1 ea PO Q8H PRN (Reason: headache)
Patient Comments:
12/08/2023: last filled 09/12/23, 90 tabs for 30 days from [facility]
rabeprazole [AcipHex] 20 MG tablet,delayed release (DR/EC)
20 mg PO BID
meclizine 25 MG tablet
25 mg PO Q8H PRN (Reason: dizziness)
levothyroxine 137 MCG capsule
137 mcg PO DAILY
losartan 50 mg tablet
50 mg PO DAILY
ondansetron HCl 8 mg tablet
8 mg PO Q8H PRN (Reason: nausea/vomiting)
lorazepam 1 mg tablet
1 mg PO Q8H PRN (Reason: anxiety)
Patient Comments:
12/08/2023: last filled 11/26/23, 90 tabs for 30 days from [facility]
albuterol sulfate 90 mcg/actuation HFA aerosol inhaler
2 puff INHALATION R Q4 PRN (Reason: sob/wheezing)
Eliquis 5 mg tablet
5 mg PO BID
fluticasone furoate-vilanterol [Breo Ellipta] 200-25 mcg/dose blister with device
1 inh INHALATION R DAILY
furosemide 40 mg tablet
40 mg PO BID
furosemide 40 mg Tablet
40 mg PO DAILY PRN (Reason: fluid)
Patient Comments:
12/08/2023: Pt was advised to take an extra dose to Furosemide yesterday.
metolazone 2.5 mg tablet
2.5 mg PO .3X WEEKLY
benzonatate 200 mg capsule
200 mg PO Q8H PRN (Reason: cough)
sulfamethoxazole-trimethoprim 800-160 mg tablet
1 tab PO BID
acetaminophen 500 mg Tablet
1,000 mg PO Q6H PRN (Reason: mild pain/fever)
cholecalciferol (vitamin D3) [Vitamin D3] 50 mcg (2,000 unit) Tablet
50 mcg PO DAILY
pitavastatin calcium 4 mg tablet
4 mg PO HS
potassium chloride 20 mEq/15 mL Liquid
20 meq PO DAILY Qty: 30 0RF
Referrals:
Annie Finley MD [Family Provider] - Call in 1-3 days for appt
Interventions
Interventions:
*Risk Screen - Suicide Last Done: 03/01/25 16:52
*General Assessment Last Done: 03/01/25 16:52
*Neglect/Abuse Screening Last Done: 03/01/25 16:52
*ED COVID-19 Vaccine History Last Done: 03/01/25 16:52
ED- Cardiac Assessment Last Done: 03/01/25 20:00
ED- Pulmonary Assessment Last Done: 03/01/25 20:00
Discharge Date and Time
Print Language: TAMAZIGHT
[2025-03-01 20:05] VITALS: BP 149/63
[2025-03-01 20:07] VITALS: BMI 46.8
[2025-03-01 20:30] VITALS: BP 141/70
[2025-03-01 20:52] VITALS: BP 159/87
== END 2025-03-01 21:40 | disposition home or self-care (01) ==
LOC: EMR 16:48
PROVIDERS: Emergency Medicine; EMERGENCY PHYSICIAN Emergency Medicine; FAMILY PHYSICIAN Family Medicine; REFERRING PHYSICIAN Internal Medicine Cardiovascular Disease
DX: R06.02 Shortness of breath (principal); R07.89 Other chest pain; E78.00 Pure hypercholesterolemia, unspecified; I13.0 Hypertensive heart and chronic kidney disease with heart failure and stage 1 through stage 4 chronic kidney disease, or unspecified chronic kidney disease; I50.9 Heart failure, unspecified; N18.9 Chronic kidney disease, unspecified; E06.3 Autoimmune thyroiditis; G89.29 Other chronic pain
CPT/HCPCS: 99285; 71046; 80053; 83880; 84484; 85025; 93005